=== PATIENT | female | born 1985 ===

== ENCOUNTER 2018-02-11 16:43 | Emergency (ER) | payer OTHER, MEDICAID ==
[2018-02-11 16:50] VITALS: BP 132/84; PULSE 96; RESP 18; TEMP 99; O2SAT 98
[2018-02-11] MEDS ORDERED: Sodium Chloride 0.9% 1,000 ML IV STA (17:57)
--- NOTE | 2018-02-11 18:00 | ED PDOC ---
HPI: Abdomen Time Seen by Provider: 02/11/18 17:58 Chief Complaint (Nursing): Abdominal Pain Chief Complaint (Provider): EPIGASTRIC PAIN/RUQ/HEADACHE History Per: Patient (32 Y/O FEMALE HERE WITH EPIGASTRIC PAIN ONGOING X FEW DAYS ASSOCIATED WITH HEADACHE NOT IMPROVING WITH EXCEDRIN. HAS H/O MIGRAINE. NO H/O GALLSTONE. NO H/O ABD SX. HAS HAD FEVER 100.4 YESTERDAY. NO DIARRHEA. NO DYSURIA.) Past Medical History Reviewed: Historical Data, Nursing Documentation, Vital Signs Vital Signs: Last Vital Signs Temp 99 F 02/11/18 16:45 Pulse 96 H 02/11/18 16:45 Resp 18 02/11/18 16:45 BP 132/84 02/11/18 16:45 Pulse Ox 98 02/11/18 19:21 - Family History Family History: States: No Known Family Hx - Allergies Allergies/Adverse Reactions: Allergies Allergy/AdvReac Type Severity Reaction Status Date / Time Penicillins Allergy RASH Verified 02/11/18 17:29 Review of Systems ROS Statement: Except As Marked, All Systems Reviewed And Found Negative Gastrointestinal: Positive for: Abdominal Pain Physical Exam - Reviewed Nursing Documentation Reviewed: Yes Vital Signs Reviewed: Yes - Physical Exam Appears: Positive for: Well, Non-toxic, No Acute Distress Head Exam: Positive for: ATRAUMATIC, NORMAL INSPECTION, NORMOCEPHALIC Skin: Positive for: Normal Color, Warm, DRY Eye Exam: Positive for: EOMI, Normal appearance, PERRL ENT: Positive for: Normal ENT Inspection Neck: Positive for: Normal, Painless ROM Cardiovascular/Chest: Positive for: Regular Rate, Rhythm Respiratory: Positive for: CNT, Normal Breath Sounds Gastrointestinal/Abdominal: Positive for: Normal Exam, Bowel Sounds, Soft. Negative for: Tenderness (EPIGASTRIC/RUQ PAIN.) Back: Positive for: Normal Inspection. Negative for: L CVA Tenderness, R CVA Tenderness Extremity: Positive for: Normal ROM Neurologic/Psych: Positive for: Alert, Oriented - Laboratory Results Result Diagrams: 02/11/18 18:00 02/11/18 18:00 Urine POC: Negative - ECG O2 Sat by Pulse Oximetry: 98 - Progress ED Course And Treament: NS 1 LITER WIDE OPEN PEPCID 20 MG IV X 1 DOSE REGLAN 10 MG I VX 1 DOSE US ABDOMEN: FATTY LIVER; NO GALLSTONE PATIENT RE-EVALUATED STATES SHE HAS PERSISTENT HEADACHE/ABDOMEN PAIN. ABDOMEN NOW DEMONSTRATES RLQ PAIN NEW FOR HER. WILL CT ABD/PELVIS R/O APPENDICITIS decadron 10 mg i vx 1 dose for headache Disposition - Clinical Impression Clinical Impression: Headache, Abdominal pain in female - Patient ED Disposition Is Patient to be Admitted: Transfer of Care - Disposition Referrals: FAMILY PROVIDER,NO [Primary Care Provider] - Disposition: Transfer of Care Disposition Time: 20:00 Condition: FAIR Forms: [employer] (Mosotho) Patient Signed Over To: Milly Rivera Handoff Comments: PENDING CT HEAD/ABD--RE-EVAL
[2018-02-11 18:20] LABS: VENOUS BLOOD GAS PCO2 45 mmHg (40-60); VENOUS BLOOD GAS PO2 29 mm/Hg (30-55); VENOUS BLOOD PH 7.42 (7.32-7.43)
[2018-02-11 18:22] LABS: SQUAMOUS EPITHIAL 3 /hpf (0-5); URINE BACTERIA RARE (<OCC); URINE BILIRUBIN NEGATIVE (NEGATIVE); URINE BLOOD SMALL (NEGATIVE); URINE CLARITY SLIGHTY-CLOUDY (Clear); URINE COLOR YELLOW (YELLOW); URINE GLUCOSE (UA) NEG (Normal); URINE LEUKOCYTE ESTERASE NEG Leu/uL (Negative); URINE PROTEIN NEGATIVE (NEGATIVE)
[2018-02-11 18:26] LABS: BASO % 0.4 % (0.0-2.0); EOS % 0.5 % (0.0-4.0); LYMPH # 0.8 K/uL (1.0-4.3); LYMPH % 12.7 % (20.0-40.0); MEAN CELL VOLUME 84.2 fl (81.0-99.0); MEAN CORPUSCULAR HEMOGLOBIN 27.8 pg (27.0-31.0); MEAN PLATELET VOLUME 8.2 fl (7.2-11.7); MONO # 0.6 K/uL (0.0-0.8); MONO % 9.7 % (0.0-10.0); NEUT # 4.9 K/uL (1.8-7.0); NEUT % 76.7 % (50.0-75.0); NRBC % 0.1 % (0.0-0.0); RBC 5.03 Mil/uL (3.80-5.20); RED CELL DISTRIBUTION WIDTH 13.2 % (11.5-14.5); WHITE BLOOD COUNT 6.4 K/uL (4.8-10.8)
[2018-02-11 18:33] LABS: ALB/GLOB RATIO 1.2 (1.0-2.1); ALBUMIN 4.1 g/dL (3.5-5.0); ALT/SGPT 32 U/L (9-52); AST/SGOT 24 U/L (14-36); BLOOD UREA NITROGEN 11 mg/dl (7-17); CALCIUM 9.1 mg/dL (8.4-10.2); GFR AFRICAN-AMERICAN > 60; GFR NON-AFRICAN AMERICAN > 60; LIPASE 66 U/L (23-300)
[2018-02-11] MEDS ORDERED: Potassium Chloride 20 mEq ER Tab PO STA (19:12)
[2018-02-11] MEDS ORDERED: Potassium Chloride 20 mEq ER Tab PO ONE (19:39)
[2018-02-11] MEDS ORDERED: Dexamethasone 10 MG in Sodium Chloride 0.9% 50 ML IV ONE (19:43)
[2018-02-11] MEDS ORDERED: Sodium Chloride 0.9% 100 ML ONE (19:48)
[2018-02-11] MEDS ORDERED: Iohexol 300 100 ML IJ ONE (19:48)
--- NOTE | 2018-02-11 22:02 | ED PDOC ---
- Laboratory Results Result Diagrams: 02/11/18 18:00 02/11/18 18:00 Urine POC: Negative - ECG O2 Sat by Pulse Oximetry: 98 Medical Decision Making Medical Decision Making: Case endorsed to me by HANNY Fitzgerald at [address] head, abd/pelvis. CT A/P: FINDINGS: Lung bases: Unremarkable. No mass nor consolidation. ABDOMEN: Liver: Faint indeterminate hypodense focus (17 mm size) in the medial right hepatic lobe (Ser. 2 - Image #17). Gallbladder and bile ducts: Unremarkable. No calcified stones. No ductal dilatation. Pancreas: Unremarkable. No mass. No ductal dilatation. Spleen: Unremarkable. No splenomegaly. Adrenals: Unremarkable. No mass. Kidneys and ureters: Unremarkable. No solid mass. No hydronephrosis. Stomach and bowel: Unremarkable. No bowel obstruction. No mucosal thickening. Appendix: A normal appendix is visualized. PELVIS: Bladder: Unremarkable. No mass nor stones. Reproductive: Unremarkable as visualized. Prominent ovaries, bilaterally. ABDOMEN and PELVIS: Intraperitoneal space: Unremarkable. No free air. No significant fluid collection. Bones/joints: No acute fracture nor dislocation. Soft tissues: Unremarkable. Vasculature: Unremarkable. No abdominal aortic aneurysm. Lymph nodes: Unremarkable. No enlarged lymph nodes. IMPRESSION: No acute pathology. A normal appendix is visualized. No acute bowel pathology. Faint indeterminate hypodense focus (17 mm size) in the medial right hepatic lobe --- perhaps a hemangioma, eg. Comparison with prior imaging studies is suggested. Dictated and Authenticated by: Isabel Dye MD 02/11/2018 9:18 PM Eastern Time ([place] & [place]) CT head: FINDINGS: Brain: No intracranial hemorrhage. No mass. No definite edema. Ventricles: No hydrocephalus. Bones/joints: No acute fracture. Soft tissues: Unremarkable. Sinuses: No acute sinusitis. Osteoma. Mastoid air cells: No mastoid effusion. Orbits: Unremarkable as visualized. IMPRESSION: 1. No definite acute intracranial abnormality. 2. Incidental/non-acute findings are described above. Dictated and Authenticated by: Nakul Dykes MD 02/11/2018 8:34 PM Eastern Time ([place] & [place]) On re-evaluation, patient reports improvement of abdominal pain, reports that she still has a headache. On exam, patient remains AAOx3, in no acute distress. abdomen soft, non-tender, repeat neuro exam shows no focal findings. Medicated with toradol 30 mg IV. Lab results reviewed and d/w the patient. CT head, abd/pelvis results d/w the patient. Diagnosis of migraine headache and gastritis d/w the patient. Based on history, exam and diagnostic results, plan will be for outpatient follow up. Patient instructed to follow-up with the clinic in 1-2 days without fail. Advised to take medication as prescribed. Return to the emergency room at any time for any new or worsening symptoms. Patient states she fully agrees with and understands discharge instructions. States that she agrees with the plan and disposition. Verbalized and repeated discharge instructions and plan. I have given the patient opportunity to ask any additional questions. Disposition Counseled Patient/Family Regarding: Studies Performed, Diagnosis, Need For Followup, Rx Given - Clinical Impression Clinical Impression: Headache, Abdominal pain in female - POA Present On Arrival: None - Disposition Referrals: FAMILY PROVIDER,WALT [Primary Care Provider] - [facility] [Outside] Disposition: Routine/Home Disposition Time: 22:15 Condition: IMPROVED Additional Instructions: Thank you for letting us take care of you today. You were treated for headache, likely migraine, abdominal pain, likely gastritis. The emergency medical care you received today was directed at your acute symptoms. If you were prescribed any medication, please fill it and take as directed. It may take several days for your symptoms to resolve. Return to the Emergency Department if your symptoms worsen, do not improve, or if you have any other problems. Please contact one of the physicians/clinics you have been referred to that are listed on the Patient Visit Information form that is included in your discharge packet. Bring any paperwork you were given at discharge with you along with any medications you are taking to your follow up visit. Our treatment cannot replace ongoing medical care by a primary care provider (PCP) outside of the emergency department. Thank you for allowing the [facility] team to be part of your care today. 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
--- NOTE | 2018-02-12 10:43 | CT ---
EXAMINATION PERFORMED: CT head without intravenous contrast. COMPARISON EXAMINATIONS: None TECHNIQUE: 2.5 mm axial acquisition and display. Coronal and sagittal reconstructions. Dose report (mGy-cm): 736.30 Unenhanced study: Coronal and sagittal reconstructed images. FINDINGS: Brain: No intracranial hemorrhage. No mass. Ventricles: No hydrocephalus. Calvarium: Unremarkable. Sinuses: No evidence of acute sinusitis. Mastoid air cells: Unremarkable. Other findings: None. IMPRESSION: No acute intracranial abnormalities. No significant findings to account for the clinical presentation. Concordant results (preliminary interpretation) provided by [facility]. Procedure Completed: 20:21 Preliminary ([facility]) Report: Dictated and Authenticated: 20:34 Final Interpretation: 10:42. February 12, 2018.
--- NOTE | 2018-02-12 11:19 | CT ---
EXAMINATION PERFORMED: CT ABDOMEN AND PELVIS. CLINICAL HISTORY: Generalized abdominal pain COMPARISON EXAMINATIONS: February 11, 2018. Abdominal ultrasound TECHNIQUE: 2.5 mm axial acquisition and display. Coronal and sagittal reconstructions. Coronal and sagittal reconstructed images. Contrast: 98 cc Omnipaque 300. Dose report (mGy-cm): 736.[address] scans at this facility use one or more dose reduction techniques: Automated exposure control; mA/kv adjustment per patient size (including targeted exams where, for example, dose is matched to indication; for example head) or iterative reconstruction technique. FINDINGS: Lower thorax: No significant findings. Liver: Hepatic steatosis. No focal masses. No intrahepatic bile duct dilatation or perihepatic ascites. . Gallbladder: Unremarkable Pancreas: Unremarkable Spleen: Unremarkable Kidneys: No evidence of mass, calculus disease, hydronephrosis. Stomach small bowel and colon: No acute findings. No evidence of obstruction, mural thickening, inflammatory changes Appendix: No abnormalities to suggest acute appendicitis. No right lower quadrant inflammatory processes identified. Reproductive: Bilaterals adnexal cysts. Left adnexal cyst 2.8 x 3.7 cm. Right adnexal cyst 2.9 x 3.3 cm. Peritoneal cavity: No significant fluid, drainable collection, free air. Lymphadenopathy: None Osseous structures: No acute findings. Other: None. IMPRESSION: No acute findings related to/accounting for the clinical presentation. Bilateral adnexal cysts. Elective followup recommended. Concordant results (preliminary interpretation) provided by [facility]. Procedure Completed: 20:27. Preliminary ([facility]) Report: Dictated and Authenticated: 21:18. Final Interpretation: 11:17. February 12, 2018.
--- NOTE | 2018-02-12 11:55 | US ---
HISTORY: R/O GALLSTONE COMPARISON: February 11, 2018. CT abdomen TECHNIQUE: And pelvis. FINDINGS: LIVER: Measures 14.0 cm in length. Hepatopedal blood flow. Fatty infiltration manifest ultrasonographically as increased echogenicity of the liver parenchyma. No mass. No intrahepatic bile duct dilatation. GALLBLADDER: Unremarkable. No gallstones. COMMON BILE DUCT: Measures 3.0 mm. No stones. No dilatation. PANCREAS: Unremarkable as visualized. No mass. No ductal dilatation. RIGHT KIDNEY: Measures 5 x 10.9 cm in length. Normal echogenicity. No calculus, mass, or hydronephrosis. AORTA: No aneurysmal dilatation. IVC: Unremarkable. OTHER FINDINGS: None . IMPRESSION: No significant or acute findings to account for/ related to the clinical presentation. Concordant results (preliminary interpretation) provided by [facility]. Procedure Completed: 18:40 Preliminary ([facility]) Report: Dictated and Authenticated: 19:24 Final Interpretation: 11:53 February 12, 2018.
== END 2018-02-11 22:46 | disposition home or self-care (01) ==
LOC: H.ER 16:43 → SUPCPDRO 16:43 → H.ER 22:46
DX: R10.13 Epigastric pain (principal); R51 Headache
CPT/HCPCS: 70450; 74177; 76705; 80053; 81003; 81025; 82803; 83690; 85025; 87086; 96374; 96375; 99284; J1100; J1885; J2765; J7040; Q9967